=== PATIENT | female | born 1955 | race Caucasian/White ===

== ENCOUNTER 2019-03-16 06:28 | Day surgery (SDC) | payer OTHER ==
[~2019-03-16] VITALS: Ht 162.6 cm; Wt 61.7 kg
[2019-03-16] MEDS ORDERED: fentaNYL 0.05 MG/ML VIAL ONE (07:46)
[2019-03-16] MEDS ORDERED: MIDAZOLAM 2 MG/2 ML VIAL ONE (07:46)
[2019-03-16] MEDS ORDERED: MIDAZOLAM 2 MG/2 ML VIAL IVP ONE (09:00)
== END 2019-03-16 08:55 | disposition home or self-care (01) ==
LOC: MOR 06:28 → MTU 06:28 → MOR 08:55
PROVIDERS: ATTEND Internal Medicine Gastroenterology
DX: K21.0 Gastro-esophageal reflux disease with esophagitis (principal); K31.84 Gastroparesis; Z85.01 Personal history of malignant neoplasm of esophagus; Z85.028 Personal history of other malignant neoplasm of stomach; Z79.899 Other long term (current) drug therapy
CPT/HCPCS: 43235; J2250; J3010

== ENCOUNTER 2020-06-20 06:00 | Day surgery (SDC) | payer OTHER ==
[~2020-06-20] VITALS: Ht 157.5 cm; Wt 59.0 kg
[2020-06-20] MEDS ORDERED: fentaNYL citrate 0.05 MG/ML VIAL IVP ONE (09:35)
[2020-06-20] MEDS ORDERED: MIDAZOLAM 2 MG/2 ML VIAL IVP ONE (09:35)
== END 2020-06-20 10:29 | disposition home or self-care (01) ==
LOC: MDS 06:00 → EDUNIT# 10:05 → MDS 10:29
PROVIDERS: ATTEND Internal Medicine Gastroenterology
DX: D50.0 Iron deficiency anemia secondary to blood loss (chronic) (principal); K22.2 Esophageal obstruction; Z85.3 Personal history of malignant neoplasm of breast; Z20.828 Contact with and (suspected) exposure to other viral communicable diseases; Z98.890 Other specified postprocedural states; Z79.899 Other long term (current) drug therapy
CPT/HCPCS: 43249; C1727; J2250; J3010; U0003

== ENCOUNTER 2021-12-11 08:01 | Day surgery (SDC) | payer MEDICARE, OTHER ==
[~2021-12-11] VITALS: Ht 157.5 cm; Wt 54.4 kg
[2021-12-11] MEDS ORDERED: fentaNYL citrate 0.05 MG/ML VIAL ONE (11:28)
[2021-12-11] MEDS ORDERED: MIDAZOLAM 5 MG/5 ML VIAL ONE (11:29)
[2021-12-11] MEDS ORDERED: MIDAZOLAM 2 MG/2 ML VIAL IVP ONE (14:30)
== END 2021-12-11 12:29 | disposition home or self-care (01) ==
LOC: MDS 08:01 → MMU 08:02 → MDS 12:29
PROVIDERS: ATTEND Internal Medicine Gastroenterology
DX: R13.10 Dysphagia, unspecified (principal); K20.90 Esophagitis, unspecified without bleeding; Z20.822 Contact with and (suspected) exposure to COVID-19; Z79.899 Other long term (current) drug therapy
CPT/HCPCS: 43235; 87426; J2250; J3010